=== PATIENT | female | born 1980 | race American Indian/Alaskan Native ===

== ENCOUNTER 2018-10-27 15:33 | Emergency (ER) | payer SELFPAY ==
--- NOTE | 2018-10-27 16:24 | Event Note ---
ED Screening Note Date of service: 10/27/18 Time: 16:19 ED Screening Note: 37 y/o female c/o of cough with blood, chest pain that through her back. This initial assessment/diagnostic orders/clinical plan/treatment(s) is/are subject to change based on patients health status, clinical progression and re- assessment by fellow clinical providers in the ED. Further treatment and workup at subsequent clinical providers discretion. Patient/guardian urged not to elope from the ED as their condition may be serious if not clinically assessed and managed. Initial orders include:
[2018-10-27 17:25] LABS: Basophils % (Auto) 0.2 % (0.0-1.8); Eosinophils % (Auto) 0.1 % (0.0-4.3); Hematocrit 39.8 % (30.3-42.9); Hemoglobin 13.5 gm/dl (10.1-14.3); Lymphocytes # (Auto) 1.1 K/mm3 (1.2-5.4); Lymphocytes % (Auto) 8.4 % (13.4-35.0); Mean Corpuscular HGB Conc 34 % (30-34); Mean Corpuscular Volume 96 fl (79-97); Monocytes # (Auto) 1.1 K/mm3 (0.0-0.8); Monocytes % (Auto) 7.7 % (0.0-7.3); Platelet Count 319 K/mm3 (140-440); Red Blood Count 4.17 M/mm3 (3.65-5.03); Red Cell Distribution Width 14.6 % (13.2-15.2)
[2018-10-27 17:29] LABS: Alanine Aminotransferase 24 units/L (7-56); Albumin 3.5 g/dL (3.9-5); BUN/Creatinine Ratio 6; Blood Urea Nitrogen 5 mg/dL (7-17); Hemolysis Index 52
[2018-10-27 17:31] LABS: INR 1.36 (0.87-1.13)
[2018-10-27 17:32] LABS: Partial Thromboplastin Time 30.5 Sec. (24.2-36.6)
--- NOTE | 2018-10-27 18:27 | Cat Scan Report ---
PROCEDURE: CT CHEST WO CON TECHNIQUE: CT chest without contrast HISTORY: chest pain through to the back, cough COMPARISONS: FINDINGS: No evidence for mediastinal mass or pathologic lymph node enlargement. Nonenhanced images of the hear t and great vessels are unremarkable. There is confluent consolidating infiltrate within the right lower lobe. There are air bronchograms present. No additional acute pulmonary findings Visualized upper abdomen is unremarkable. IMPRESSION: Right lower lobe infiltrate most consistent with pneumonia. This document is electronically signed by Srinath Clancy MD., October 27 2018 06:25:35 PM ET
[2018-10-27] MEDS ORDERED: ZITHROMAX PO ONE (18:48)
[2018-10-27] MEDS ORDERED: TYLENOL/CODEINE PO ONE (18:48)
--- NOTE | 2018-10-27 18:50 | Emergency Department Report ---
Minor Respiratory - HPI Chief Complaint: Chest Pain Stated Complaint: CHEST PAIN/BACK PAIN Time Seen by Provider: 10/27/18 16:19 Duration: 2 Days Pain Location: Chest Severity: moderate Minor Respiratory: Yes Able to Tolerate Fluids, Yes Cough, Yes Chest Pain, No Rhinorrhea, No Sore Throat, No Ear Pain, No Sick Contacts, No Hemoptysis, No Shortness of Breath, No Fever Other History: This is a 37-year-old female with no prior medical history of presents to ED complaining of right sided lower chest pain that got worse yesterday. Patient states that she's been coughing up intermittently for the past couple of days. Patient denies fever/chills/nausea vomiting. ED Review of Systems ROS: Stated complaint: CHEST PAIN/BACK PAIN Other details as noted in HPI Comment: All other systems reviewed and negative ED Past Medical Hx - Past Medical History Hx Asthma: Yes - Surgical History Additional Surgical History: TONSILS REMOVED - Social History Smoking Status: Current Every Day Smoker Substance Use Type: Alcohol, Marijuana - Medications Home Medications: Home Medications Medication Instructions Recorded Confirmed Last Taken Type Acetamin/Codeine 120-12Mg/5 ml 5 ml PO TID #80 ml 10/27/18 Unknown Rx [Tylenol/Codeine 120-12 mg/5 ml] Azithromycin [Zithromax TAB] 500 mg PO DAILY #7 tablet 10/27/18 Unknown Rx Benzonatate [Tessalon Perles] 100 mg PO Q8HR #20 capsule 10/27/18 Unknown Rx Minor Respiratory Exam - Exam General: Vital signs noted. No distress. Alert and acting appropriately. HEENT: Yes Moist Mucous Membranes, No Pharyngeal Erythema, No Pharyngeal Exudates, No Rhinorrhea, No Conjuctival Injection, No Frontal Tenderness, No Maxillary Tenderness Ear: Neither TM Bulge, Neither TM Erythema, Neither EAC Pain, Neither EAC Discharge Neck: Yes Supple, No Adenopathy Lungs: Yes Good Air Exchange, No Wheezes, No Ronchi, No Stridor, No Cough, No Labored Respirations, No Retractions, No Use of Accessory Muscles, No Other Abnormal Lung Sounds Heart: Yes Regular, No Murmur Abdomen: Yes Normal Bowel Sounds, No Tenderness, No Peritoneal Signs Skin: No Rash, No Edema Neurologic: Alert and oriented, no deficits. Musculoskeletal: Unremarkable. ED Course Vital Signs 10/27/18 16:19 Temperature 98.4 F Pulse Rate 121 H Respiratory 18 Rate Blood Pressure 163/106 O2 Sat by Pulse 98 Oximetry ED Medical Decision Making - Lab Data Result diagrams: 10/27/18 16:33 10/27/18 16:33 Laboratory Last Values WBC 13.6 K/mm3 (4.5-11.0) H 10/27/18 16:33 RBC 4.17 M/mm3 (3.65-5.03) 10/27/18 16:33 Hgb 13.5 gm/dl (10.1-14.3) 10/27/18 16:33 Hct 39.8 % (30.3-42.9) 10/27/18 16:33 MCV 96 fl (79-97) 10/27/18 16:33 MCH 32 pg (28-32) 10/27/18 16:33 MCHC 34 % (30-34) 10/27/18 16:33 RDW 14.6 % (13.2-15.2) 10/27/18 16:33 Plt Count 319 K/mm3 (140-440) 10/27/18 16:33 Lymph % (Auto) 8.4 % (13.4-35.0) L 10/27/18 16:33 [place] % (Auto) 7.7 % (0.0-7.3) H 10/27/18 16:33 Eos % (Auto) 0.1 % (0.0-4.3) 10/27/18 16:33 Baso % (Auto) 0.2 % (0.0-1.8) 10/27/18 16:33 Lymph # 1.1 K/mm3 (1.2-5.4) L 10/27/18 16:33 [place] # 1.1 K/mm3 (0.0-0.8) H 10/27/18 16:33 Eos # 0.0 K/mm3 (0.0-0.4) 10/27/18 16:33 Baso # 0.0 K/mm3 (0.0-0.1) 10/27/18 16:33 Seg Neutrophils % 83.6 % (40.0-70.0) H 10/27/18 16:33 Seg Neutrophils # 11.4 K/mm3 (1.8-7.7) H 10/27/18 16:33 PT 16.4 Sec. (12.2-14.9) H 10/27/18 16:33 INR 1.36 (0.87-1.13) H 10/27/18 16:33 APTT 30.5 Sec. (24.2-36.6) 10/27/18 16:33 Sodium 134 mmol/L (137-145) L 10/27/18 16:33 Potassium 3.7 mmol/L (3.6-5.0) 10/27/18 16:33 Chloride 96.5 mmol/L (98-107) L 10/27/18 16:33 Carbon Dioxide 21 mmol/L (22-30) L 10/27/18 16:33 20 mmol/L 10/27/18 16:33 BUN 5 mg/dL (7-17) L 10/27/18 16:33 0.9 mg/dL (0.7-1.2) 10/27/18 16:33 Estimated GFR > 60 ml/min 10/27/18 16:33 6 % 10/27/18 16:33 Glucose 136 mg/dL (65-100) H 10/27/18 16:33 Calcium 9.0 mg/dL (8.4-10.2) 10/27/18 16:33 0.40 mg/dL (0.1-1.2) 10/27/18 16:33 AST 34 units/L (5-40) 10/27/18 16:33 ALT 24 units/L (7-56) 10/27/18 16:33 93 units/L (35-129) 10/27/18 16:33 9.0 g/dL (6.3-8.2) H 10/27/18 16:33 3.5 g/dL (3.9-5) L 10/27/18 16:33 0.6 % 10/27/18 16:33 - EKG Data EKG shows normal: sinus rhythm Rate: normal - Radiology Data Radiology results: report reviewed, image reviewed FINDINGS: No evidence for mediastinal mass or pathologic lymph node enlargement. Nonenhanced images of the heart and great vessels are unremarkable. There is confluent consolidating infiltrate within the right lower lobe. There are air bronchograms present. No additional acute pulmonary findings Visualized upper abdomen is unremarkable. IMPRESSION: Right lower lobe infiltrate most consistent with pneumonia. This document is electronically signed by Srinath Arriaga MD., October 27 2018 06:25:35 PM ET Transcribed By: BASSAM Dictated By: EMILY ARRIAGA MD Electronically Authenticated By: EMILY ARRIAGA MD Signed Date/Time: 10/27/18 1827 - Medical Decision Making 37 y o female presents with right lobe pneumonia CBC shows elevated white count, BMP shows some low electrolytes. Chest x-ray shows pneumonia. Patient received 1 L of fluids, Tylenol and codeine as well as Motrin. Discussed the patient will follow up with primary care physician within 1 week. Vital signs normalized. Discussed with patient if she has any worsening symptoms to return to ED immediately. Critical care attestation.: If time is entered above; I have spent that time in minutes in the direct care of this critically ill patient, excluding procedure time. ED Disposition Clinical Impression: Pneumonia Disposition: DC-01 TO HOME OR SELFCARE Is pt being admited?: No Does the pt Need Aspirin: No Condition: Stable Instructions: Upper Respiratory Infection (ED), Bacterial Pneumonia (ED) Additional Instructions: Make sure to follow up with the primary care physician as discussed. Take all your medications as you've been prescribed. If you have any worsening symptoms or develop new symptoms please return to ED immediately. Prescriptions: Benzonatate [Tessalon Perles] 100 mg PO Q8HR #20 capsule Acetamin/Codeine 120-12Mg/5 ml [Tylenol/Codeine 120-12 mg/5 ml] 5 ml PO TID #80 ml Azithromycin [Zithromax TAB] 500 mg PO DAILY #7 tablet Referrals: EMILIANO ROSARIO MD [Primary Care Provider] - 3-5 Days [facility] [Outside] - 3-5 Days [facility] [Outside] - 3-5 Days Forms: Accompanied Note, Work/School Release Form(ED) Time of Disposition: 19:20
[2018-10-27] MEDS ORDERED: NACL 0.9% 1000 ML 1,000 ML IV ONE (20:23)
[2018-10-27] MEDS ORDERED: ROCEPHIN IV ONE (20:23)
[2018-10-27] MEDS ORDERED: IBUPROFEN PO ONE (21:09)
[2018-10-27] MEDS ORDERED: ROCEPHIN/NS 1 GM/50 ML 1 GM/50 ML BAG IV ONE (21:11)
[2018-10-27 23:43] VITALS: BP 112/63
== END 2018-10-27 23:43 | disposition home or self-care (01) ==
LOC: ED 15:33
DX: J18.1 Lobar pneumonia, unspecified organism (principal); J45.909 Unspecified asthma, uncomplicated; F17.200 Nicotine dependence, unspecified, uncomplicated; F12.10 Cannabis abuse, uncomplicated; Z79.899 Other long term (current) drug therapy
CPT/HCPCS: 36415; 71250; 80053; 85025; 85610; 85730; 93005; 93010; 96365; 99284; J0696; J7030

== ENCOUNTER 2022-01-27 06:16 | Emergency (ER) | payer SELFPAY ==
[2022-01-27 08:59] LABS: Basophils % (Auto) 0.6 % (0.0-1.8); Eosinophils # (Auto) 0.1 K/mm3 (0.0-0.4); Eosinophils % (Auto) 0.8 % (0.0-4.3); Hematocrit 41.3 % (30.3-42.9); Hemoglobin 14.1 gm/dl (10.1-14.3); Lymphocytes # (Auto) 2.5 K/mm3 (1.2-5.4); Lymphocytes % (Auto) 30.5 % (13.4-35.0); Mean Corpuscular HGB Conc 34 % (30-34); Mean Corpuscular Volume 95 fl (79-97); Monocytes # (Auto) 0.5 K/mm3 (0.0-0.8); Monocytes % (Auto) 6.6 % (0.0-7.3); Platelet Count 399 K/mm3 (140-440); Red Blood Count 4.35 M/mm3 (3.65-5.03); Red Cell Distribution Width 14.7 % (13.2-15.2)
[2022-01-27 09:23] LABS: Alanine Aminotransferase 24 units/L (7-56); Albumin 4.3 g/dL (3.9-5); Blood Urea Nitrogen 6 mg/dL (7-17); Hemolysis Index 0
[2022-01-27 09:28] LABS: BUN/Creatinine Ratio 10
[2022-01-27] MEDS ORDERED: ACETAMINOPHEN 325 MG TAB PO ONE (10:41)
[2022-01-27 11:48] LABS: Mucus,Urine 2+ /HPF
[2022-01-27 12:00] LABS: Color,Urine Yellow (Yellow)
--- NOTE | 2022-01-27 12:18 | Emergency Department Report ---
ED Abdominal Pain HPI - General Chief Complaint: Abdominal Pain Stated Complaint: SEVERE ABD PAIN Source: patient Mode of arrival: Ambulatory Limitations: No Limitations - History of Present Illness Initial Comments: 41-year-old female presents to the ED complaining of sudden onset of abdominal pain times x 1 day, patient states that she was vomiting x3 to arrival to the ED. denies any past medical history. Patient denies any chest pain or shortness of breath. States abdominal pain is a current 5 out of 10. Patient denies any diarrhea at present time. Patient is alert and oriented x3. No acute distress noted. No ill appearance noted. MD Complaint: abdominal pain Onset/Timin -: Sudden Location: epigastric Radiation: none Migration to: no migration Severity scale (0 -10): 8 Quality: aching Improves With: nothing Associated Symptoms: denies other symptoms - Related Data Previous Rx's Medication Instructions Recorded Last Taken Type Acetamin/Codeine 120-12Mg/5 ml 5 ml PO TID #80 ml 10/27/18 Unknown Rx [Tylenol/Codeine 120-12 mg/5 ml] Azithromycin [Zithromax TAB] 500 mg PO DAILY #7 tablet 10/27/18 Unknown Rx Benzonatate [Tessalon Perles] 100 mg PO Q8HR #20 capsule 10/27/18 Unknown Rx Acetaminophen/Codeine [Tylenol 1 tab PO Q6H PRN 3 Days #12 tab 01/27/22 Unknown Rx /Codeine # 3 tab] Allergies Allergy/AdvReac Type Severity Reaction Status Date / Time No Known Allergies Allergy Unverified 10/27/18 15:35 ED Review of Systems ROS: Stated complaint: SEVERE ABD PAIN Other details as noted in HPI Constitutional: denies: chills, fever Eyes: denies: eye pain, eye discharge, vision change ENT: denies: ear pain, throat pain Respiratory: denies: cough, shortness of breath, wheezing Cardiovascular: denies: chest pain, palpitations Endocrine: no symptoms reported Gastrointestinal: abdominal pain. denies: nausea, diarrhea Genitourinary: denies: urgency, dysuria, discharge Musculoskeletal: denies: back pain, joint swelling, arthralgia Skin: denies: rash, lesions Neurological: denies: headache, weakness, paresthesias Psychiatric: denies: anxiety, depression Hematological/Lymphatic: denies: easy bleeding, easy bruising ED Past Medical Hx - Past Medical History Previous Medical History?: Yes Hx Asthma: Yes - Surgical History Past Surgical History?: No Additional Surgical History: TONSILS REMOVED - Social History Smoking Status: Unknown if ever smoked Substance Use Type: None, Non Opiate Pain - Medications Home Medications: Home Medications Medication Instructions Recorded Confirmed Last Taken Type Acetamin/Codeine 120-12Mg/5 ml 5 ml PO TID #80 ml 10/27/18 Unknown Rx [Tylenol/Codeine 120-12 mg/5 ml] Azithromycin [Zithromax TAB] 500 mg PO DAILY #7 tablet 10/27/18 Unknown Rx Benzonatate [Tessalon Perles] 100 mg PO Q8HR #20 capsule 10/27/18 Unknown Rx Acetaminophen/Codeine [Tylenol 1 tab PO Q6H PRN 3 Days #12 tab 01/27/22 Unknown Rx /Codeine # 3 tab] ED Physical Exam - General Limitations: No Limitations ED Course Vital Signs 01/27/22 06:57 Temperature 99.0 F Pulse Rate 107 H Respiratory 18 Rate Blood Pressure 155/104 O2 Sat by Pulse 96 Oximetry ED Medical Decision Making - Lab Data Result diagrams: 01/27/22 08:50 01/27/22 08:50 - Radiology Data [facility] [address] [place] [address] Cat Scan Report Signed Patient: DYLLAN RESENDEZ MR#: [id number] : 1980 Acct:[id number] Age/Sex: 41 / F ADM Date: 01/27/22 Loc: ED Attending Dr: Ordering Physician: PAMELA DA SILVA Date of Service: 01/27/22 Procedure(s): CT abdomen pelvis w con Accession Number(s): [id number] cc: PAMELA DA SILVA CT ABDOMEN AND PELVIS WITH CONTRAST HISTORY: abd pain COMPARISON: None TECHNIQUE: Routine abdominal and pelvic CT exam performed following intravenous contrast administration.. All CT scans at this location are performed using CT dose reduction for ALARA by means of automated exposure control. FINDINGS: CT ABDOMEN: Lung Bases: No significant abnormality. Liver: No significant abnormality. Biliary: No significant abnormality. Spleen: No significant abnormality. Unenlarged. Pancreas: No significant abnormality. Adrenals: No significant abnormality. Kidneys: No significant abnormality. Lymphatics: No lymphadenopathy. Vasculature: No significant abnormality. Bowel/Peritoneum: Nonobstructive bowel pattern. Diverticulosis without mesocolonic fat stranding. No free air. No free fluid. CT PELVIC: : No significant abnormality. Lymphatics: No lymphadenopathy. Osseous Structures: No aggressive appearing osseous lesions. Additional Findings: None IMPRESSION: 1. No acute findings. 2.: Diverticulosis without diverticulitis. Signer Name: Luc Nieto MD Signed: 01/27/2022 3:03 PM Workstation Name: [email or web address] Transcribed By: CURTIS Dictated By: Luc Nieto MD Electronically Authenticated By: Luc Nieto MD Signed Date/Time: 01/27/221502 DD/ 01 TD/TT: - Medical Decision Making 41-year-old female presents to the ED complaining of sudden onset of abdominal pain times x 1 day, patient states that she was vomiting x3 to arrival to the ED. denies any past medical history. Patient denies any chest pain or shortness of breath. States abdominal pain is a current 5 out of 10. Patient denies any diarrhea at present time. Patient is alert and oriented x3. No acute distress noted. No ill appearance noted. Physical examination is unremarkable. CT of the abdomen with contrast shows 1. No acute findings. 2.: Diverticulosis without diverticulitis. Rechecked the patient is resting quietly , comfortable and feeling better. I discussed the results of diagnostic study, my clinical impression and the plan for further treatment with the patient. Patient agrees with plan and discharge at this present time. All question addressed. I have given the patient instruction regarding a diagnosis ,expectation ,follow- up and return precaution. I explained to the patient that emergent condition may arise and to return to the ED for new worsen and any new persisting condition. I have explained the importance of following up with the primary care physician or referral physician listed below has instructed. The patient verbalized understa nding of discharge instruction. Critical care attestation.: If time is entered above; I have spent that time in minutes in the direct care of this critically ill patient, excluding procedure time. ED Disposition Clinical Impression: Diverticulosis Disposition: 01 HOME / SELF CARE / HOMELESS Is pt being admited?: No Does the pt Need Aspirin: No Condition: Stable Instructions: Abdominal Pain (ED), Diverticulosis Additional Instructions: Increase your fiber in your diet Return to ED for any worsening symptom Prescriptions: Acetaminophen/Codeine [Tylenol /Codeine # 3 tab] 1 tab PO Q6H PRN 3 Days #12 tab PRN Reason: Pain, Mild (1-3) Referrals: MINA OJEDA MD [Primary Care Provider] - 3-5 Days [facility] [Provider Group] - 3-5 Days Forms: Work/School Release Form(ED) Time of Disposition: 15:20
[2022-01-27] MEDS ORDERED: SODIUM CHLORIDE 0.9% 1000 ML 1,000 ML IV ONE (12:19)
[2022-01-27] MEDS ORDERED: KETOROLAC 30 MG/1 ML INJ IV ONE (12:20)
[2022-01-27] MEDS ORDERED: ONDANSETRON 4 MG/2 ML INJ IV ONE (12:20)
[2022-01-27 12:58] LABS: HCG Qualitative,Urine Negative (Negative)
--- NOTE | 2022-01-27 15:08 | Cat Scan Report ---
CT ABDOMEN AND PELVIS WITH CONTRAST HISTORY: abd pain COMPARISON: None TECHNIQUE: Routine abdominal and pelvic CT exam performed following intravenous contrast administrat ion.. All CT scans at this location are performed using CT dose reduction for ALARA by means of autom ated exposure control. FINDINGS: CT ABDOMEN: Lung Bases: No significant abnormality. Liver: No significant abnormality. Biliary: No significant abnormality. Spleen: No significant abnormality. Unenlarged. Pancreas: No significant abnormality. Adrenals: No significant abnormality. Kidneys: No significant abnormality. Lymphatics: No lymphadenopathy. Vasculature: No significant abnormality. Bowel/Peritoneum: Nonobstructive bowel pattern. Diverticulosis without mesocolonic fat stranding. No free air. No free fluid. CT PELVIC: : No significant abnormality. Lymphatics: No lymphadenopathy. Osseous Structures: No aggressive appearing osseous lesions. Additional Findings: None IMPRESSION: 1. No acute findings. 2.: Diverticulosis without diverticulitis. Signer Name: Luc Nieto MD Signed: 01/27/2022 3:03 PM Workstation Name: [email or web address]
[2022-01-27 15:51] VITALS: BP 151/97
== END 2022-01-27 15:51 | disposition home or self-care (01) ==
LOC: ED 06:16
DX: K57.90 Diverticulosis of intestine, part unspecified, without perforation or abscess without bleeding (principal); J45.909 Unspecified asthma, uncomplicated
CPT/HCPCS: 36415; 74177; 80053; 81001; 81025; 85025; 96361; 96374; 96375; 99284; J1885; J2405; J7030; Q9967